=== PATIENT | male | born 1960 | race Caucasian/White ===

== ENCOUNTER 2017-07-14 15:19 | Emergency (ER) | payer MEDICAID, OTHER, SELFPAY ==
[2017-07-14] MEDS ORDERED: HYDROmorphone 2 MG/ML SDV IM ONE (15:50)
[2017-07-14] MEDS ORDERED: Iopamidol 755 MG/ML 150 ML Bottle IV ONE (16:59)
--- NOTE | 2017-07-14 17:18 | EDM.PDOC ---
ED HPI GENERAL MEDICAL PROBLEM - General Chief Complaint: Abdominal Pain Stated Complaint: POST SURGERY PAIN Time Seen by Provider: 07/14/17 15:33 Source of Information: Reports: Patient, Family History Limitations: Reports: No Limitations - History of Present Illness INITIAL COMMENTS - FREE TEXT/NARRATIVE: 56 y.o.w.m came to the ed due to pain in his r lower abdomen since he had an inguinal hernia surgery on May 24 2017. Pt was seen at several clinics and EDs and had multiple CTs of his abdomen. All the CTs were the same and did not change. No abscess, no infections were seen in any of the CTs. Pt denies any other acute medical issues. BP 155/93 puls 93 Onset: Unknown/Unsure Onset Date: 05/24/17 Onset Time: 20:00 Duration: Week(s): Location: Reports: Abdomen Right Lower Abdomen Pain Score (Numeric/FACES): 9 - Related Data Allergies Allergy/AdvReac Type Severity Reaction Status Date / Time gabapentin Allergy Difficulty Verified 07/14/17 15:31 Swallowing pregabalin [From Lyrica] Allergy Difficulty Verified 07/14/17 15:31 Swallowing Home Meds: Home Meds ALPRAZolam [ALPRAZolam ER] 0.5 mg PO BID 03/24/16 [History] ALPRAZolam [Alprazolam] 1 mg PO BEDTIME 03/25/16 [History] Levothyroxine 125 mcg PO DAILY 03/25/16 [History] Lisinopril 30 mg PO DAILY 11/27/16 [History] Past Medical History HEENT History: Reports: Otitis Media Cardiovascular History: Reports: Hypertension Other Cardiovascular History: stat Gastrointestinal History: Reports: GI Bleed Musculoskeletal History: Reports: Back Pain, Chronic, Neck Pain, Chronic, RA Psychiatric History: Reports: Anxiety, Panic Attack Endocrine/Metabolic History: Reports: Hypothyroidism Hematologic History: Reports: Anemia, Blood Transfusion(s), Iron Deficiency - Infectious Disease History Infectious Disease History: Reports: Chicken Pox - Past Surgical History HEENT Surgical History: Reports: Myringotomy w Tube(s), Tonsillectomy GI Surgical History: Reports: Colon, Colonoscopy, Hernia Repair/Other Musculoskeletal Surgical History: Reports: Carpal Tunnel Social & Family History - Family History Family Medical History: Noncontributory HEENT: Reports: Cataract Cardiac: Reports: [place] OBGYN: Reports: Musculoskeletal: Reports: Arthritis, RA Neurological: Reports: CVA Psychiatric: Reports: Anxiety Endocrine/Metabolic: Reports: Diabetes, type II Oncologic: Reports: Other (See Below) Other Oncologic Family History: testicular and rectal - Tobacco Use Smoking Status *Q: Current Every Day Smoker Years of Tobacco use: 43 Packs/Tins Daily: 1 Used Tobacco, but Quit: No Second Hand Smoke Exposure: No - Caffeine Use Caffeine Use: Reports: None - Recreational Drug Use Recreational Drug Use: No ED ROS GENERAL - Review of Systems Review Of Systems: See Below Constitutional: Reports: No Symptoms HEENT: Reports: No Symptoms Respiratory: Reports: No Symptoms Cardiovascular: Reports: No Symptoms Endocrine: Reports: No Symptoms GI/Abdominal: Reports: Abdominal Pain : Reports: Dysuria Musculoskeletal: Reports: No Symptoms Skin: Reports: No Symptoms Neurological: Reports: No Symptoms Psychiatric: Reports: No Symptoms Hematologic/Lymphatic: Reports: No Symptoms Immunologic: Reports: No Symptoms ED EXAM, GI/ABD - Physical Exam Exam: See Below Exam Limited By: No Limitations General Appearance: Alert, WD/WN, Mild Distress Eyes: Bilateral: Normal Appearance Ears: Normal External Exam Nose: Normal Inspection, Normal Mucosa Throat/Mouth: Normal Inspection Head: Atraumatic, Normocephalic Neck: Normal Inspection, Supple, Non-Tender Respiratory/Chest: No Respiratory Distress, Lungs Clear Cardiovascular: Normal Peripheral Pulses, Regular Rate, Rhythm, No Edema GI/Abdominal Exam: Normal Bowel Sounds, Tender (tender r lower abd. no redness, well healed surgical scar. no fluctuating mass) (Male) Exam: No Hernia Rectal (Males) Exam: Deferred Back Exam: Normal Inspection, Full Range of Motion Extremities: Normal Inspection, Normal Range of Motion, Non-Tender, No Pedal Edema Neurological: Alert, Oriented, CN II-XII Intact, Normal Cognition, Normal Gait Psychiatric: Normal Affect, Normal Mood Skin Exam: Warm, Dry, Intact, Normal Color, No Rash Lymphatic: No Adenopathy Course - Vital Signs Text/Narrative:: 56 y.o.w.m came to the ed due to pain in his r lower abdomen since he had an inguinal hernia surgery on May 24 2017. Pt was seen at several clinics and EDs and had multiple CTs of his abdomen. All the CTs were the same and did not change. No abscess, no infections were seen in any of the CTs. Pt denies any other acute medical issues. BP 155/93 puls 93 Imaging: US of scrotum: NAD. CT: Abd/Pelvis results are pending Impression: Seroma s/p Hernia surgery 05/24/2017. scrotal pain. Consultation: Dr. Mejia, Surgeon, [place]: Seroma s/p surgery will not resolve if there is on infection involved. He is recommending CT abd. with contrast. If neg, cont tylenol and carafate. Dr. Mejia is very concerned about the patients drug seeking behaviour. Tx: Initially Dilaudid, Ultram Impression: Improved Plan: D/C with instructions Last Recorded V/S: Last Vital Signs Temp 35.9 C 07/14/17 15:33 Pulse 69 07/14/17 19:20 Resp 14 07/14/17 19:20 BP 136/93 H 07/14/17 19:20 Pulse Ox 98 07/14/17 19:20 - Orders/Labs/Meds Orders: Active Orders 24 hr Category Date Time Status Abdomen Pelvis w Cont [CT] Stat Exams 07/14/17 17:14 Taken Scrotum and Contents [US] Stat Exams 07/14/17 16:51 Taken Labs: Laboratory Tests 07/14/17 07/14/17 07/14/17 Range/Units 15:51 17:07 17:07 WBC 8.4 (4.5-12.0) X10-3/uL RBC 4.86 (4.30-5.75) x10(6)uL Hgb 14.0 (11.5-15.5) g/dL Hct 41.6 (30.0-51.3) % MCV 85.5 (80-96) fL MCH 28.7 (27.7-33.6) pg MCHC 33.6 (32.2-35.4) g/dL RDW 15.7 H (11.5-15.5) % Plt Count 268 (125-369) X10(3)uL MPV 7.8 (7.4-10.4) fL Neut % (Auto) 65.0 (46-82) % Lymph % (Auto) 26.5 (13-37) % [place] % (Auto) 5.4 (4-12) % Eos % (Auto) 3 (1.0-5.0) % Baso % (Auto) 1 (0-2) % Neut # (Auto) 5.4 (1.6-8.3) # Lymph # (Auto) 2.2 (0.6-5.0) # [place] # (Auto) 0.5 (0.0-1.3) # Eos # (Auto) 0.2 (0.0-0.8) # Baso # (Auto) 0.1 (0.0-0.2) # Sodium 131 L D (135-145) mmol/L Potassium 4.0 (3.5-5.3) mmol/L Chloride 97 L D (100-110) mmol/L Carbon Dioxide 24 (23-29) mmol/L BUN 18 (5-20) mg/dL Creatinine 1.3 (0.6-1.3) mg/dL Est Cr Clr Drug Dosing 82.03 mL/min Estimated GFR (MDRD) 57 L (>60) BUN/Creatinine Ratio 13.8 (9-20) Glucose 105 (80-116) mg/dL Calcium 9.6 (8.6-10.2) mg/dL Urine Color Yellow (YELLOW) Urine Appearance Clear (CLEAR) Urine pH 6.0 (5.0-6.5) Ur Specific [place] 1.015 (1.010-1.025) Urine Protein Negative (NEGATIVE) mg/dL Urine Glucose (UA) Normal (NEGATIVE) mg/dL Urine Ketones Negative (NEGATIVE) mg/dL Urine Occult Blood Negative (NEGATIVE) Urine Nitrite Negative (NEGATIVE) Urine Bilirubin Negative (NEGATIVE) Urine Urobilinogen Normal (NEGATIVE) mg/dL Ur Leukocyte Esterase Negative (NEGATIVE) Urine RBC 0-5 (0) Urine WBC 0-5 (0) Ur Squamous Epith Cells Rare (NS,R,O) Urine Bacteria Occasional H (NS) Urine Mucus Occasional H (NS) Meds: Medications Discontinued Medications Generic Name Dose Route Start Last Admin Trade Name Freq PRN Reason Stop Dose Admin Hydromorphone HCl 1 mg 07/14/17 15:50 07/14/17 16:00 Dilaudid IM 07/14/17 15:51 1 mg ONETIME ONE Administration Iopamidol 150 ml 07/14/17 16:59 07/14/17 17:12 [id number] (76%) IV 07/14/17 17:00 136 ml ONETIME ONE Administration Departure - Departure Time of Disposition: 18:55 Disposition: Home, Self-Care 01 Condition: Good Clinical Impression: Seroma infection, postoperative - Discharge Information Referrals: PCP,None [Primary Care Provider] - Forms: ED Department Discharge Additional Instructions: Your Imaging study reports are not back yet. Please apply ice to the affected area, please continue your current meds, please f/u with the pain clinic, please come back if your symptoms get worse acutely. - My Orders Last 24 Hours: My Active Orders 07/14/17 16:51 Scrotum and Contents [US] Stat 07/14/17 17:14 Abdomen Pelvis w Cont [CT] Stat - Assessment/Plan Last 24 Hours: My Active Orders 07/14/17 16:51 Scrotum and Contents [US] Stat 07/14/17 17:14 Abdomen Pelvis w Cont [CT] Stat
[2017-07-14 19:21] VITALS: BP 136/93
[2017-07-14] MEDS ORDERED: traMADol 50 MG Tab PO ONE (19:28)
--- NOTE | 2017-07-17 16:11 | US ---
INDICATION: Right scrotum swelling. ULTRASOUND SCROTUM AND CONTENTS: Multiple ultrasonic images revealed the testicles to measure 4.6 x 2.2 x 2.9 cm on the right and 4.6 x 2 x 3.1 cm on the left. The testicles had a normal appearance in size, shape, and echotexture, with normal blood flow also seen. Epididymides were unremarkable bilaterally. Minimal bilateral hydroceles are noted of questionable significance and may be normal in this patient. Superiorly, in the scrotum bilaterally, there are vascular structures compatible with varicocele, appearing somewhat more prominent on the left than right. IMPRESSION: 1. Bilateral varicoceles, larger left than right. 2. Minimal hydroceles bilaterally, which may be a normal finding in this specific patient. 3. Scrotal ultrasound otherwise unremarkable with no focal mass lesion or abnormal testicular or epididymal blood flow. MATHEWD
== END 2017-07-14 19:19 | disposition home or self-care (01) ==
LOC: FB.ED 15:19
DX: K91.872 Postprocedural seroma of a digestive system organ or structure following a digestive system procedure (principal); I10 Essential (primary) hypertension; F41.9 Anxiety disorder, unspecified; E03.9 Hypothyroidism, unspecified; F17.210 Nicotine dependence, cigarettes, uncomplicated; Z88.8 Allergy status to other drugs, medicaments and biological substances
CPT/HCPCS: 36415; 74177; 76870; 80048; 81001; 85025; 96372; 99284; J1170; Q9967; 99283; A9270-GY

== ENCOUNTER 2017-11-13 14:59 | Emergency (ER) | payer OTHER, SELFPAY ==
[2017-11-13] MEDS ORDERED: Lactated Ringers 1,000 ML IV ONE (15:35)
[2017-11-13] MEDS ORDERED: HYDROmorphone 2 MG/ML SDV IVPUSH ONE (15:35)
[2017-11-13] MEDS ORDERED: Sodium Chloride 0.9% 10 ML Syringe FLUSH PRN (15:43)
--- NOTE | 2017-11-13 15:50 | EDM.PDOC ---
ED HPI GENERAL MEDICAL PROBLEM - General Chief Complaint: Abdominal Pain Stated Complaint: GROIN PAIN /STOMACH Time Seen by Provider: 11/13/17 15:35 Source of Information: Reports: Patient History Limitations: Reports: No Limitations - History of Present Illness INITIAL COMMENTS - FREE TEXT/NARRATIVE: 56 yo male presents with a 3 day hx of RLQ abdominal pain. No fever. Has had nausea at times. Pain worse with movement. Still has his appendix. Has R inguinal hernia repair in the past. Pain radiates to the R testicle. No dysuria or hematuria. No flank pain. Has not been seen for this recently. Has a surgeon in [place], but no family doctor. Also, mentions diffuse joint pains of recent onset. Onset: Gradual Onset Date: 11/10/17 Duration: Day(s): Location: Reports: Abdomen Quality: Reports: Ache Severity: Moderate Improves with: Reports: Rest Worsens with: Reports: Movement Context: Reports: Other (Hx of R inguinal hernia repair. ) Associated Symptoms: Reports: Nausea/Vomiting (mild nausea, no vomiting.). Denies: Fever/Chills Treatments [employer]: Reports: Other (see below) (none) Right Groin Pain Score (Numeric/FACES): 9 Generalized Pain Score (Numeric/FACES): 5 - Related Data Allergies Allergy/AdvReac Type Severity Reaction Status Date / Time gabapentin Allergy Difficulty Verified 07/14/17 15:31 Swallowing pregabalin [From Lyrica] Allergy Difficulty Verified 11/13/17 15:14 Swallowing Home Meds: Home Meds Levothyroxine 125 mcg PO DAILY 03/25/16 [History] Lisinopril 30 mg PO DAILY 11/27/16 [History] Hydrocodone/Acetaminophen [[place] 5-325] 1 - 2 tab PO Q4H PRN #20 tablet [Rx] Past Medical History HEENT History: Reports: Otitis Media Cardiovascular History: Reports: Hypertension Other Cardiovascular History: stat Gastrointestinal History: Reports: GI Bleed Musculoskeletal History: Reports: Back Pain, Chronic, Neck Pain, Chronic, RA Psychiatric History: Reports: Anxiety, Panic Attack Endocrine/Metabolic History: Reports: Hypothyroidism Hematologic History: Reports: Anemia, Blood Transfusion(s), Iron Deficiency - Infectious Disease History Infectious Disease History: Reports: Mumps - Past Surgical History HEENT Surgical History: Reports: Myringotomy w Tube(s), Tonsillectomy GI Surgical History: Reports: Colon, Colonoscopy, Hernia Repair/Other Musculoskeletal Surgical History: Reports: Carpal Tunnel Social & Family History - Family History Family Medical History: Noncontributory HEENT: Reports: Cataract Cardiac: Reports: [place] OBGYN: Reports: Musculoskeletal: Reports: Arthritis, RA Neurological: Reports: CVA Psychiatric: Reports: Anxiety Endocrine/Metabolic: Reports: Diabetes, type II Oncologic: Reports: Other (See Below) Other Oncologic Family History: testicular and rectal - Tobacco Use Smoking Status *Q: Current Every Day Smoker Years of Tobacco use: 40 Packs/Tins Daily: 1 Used Tobacco, but Quit: No Second Hand Smoke Exposure: No - Caffeine Use Caffeine Use: Reports: None - Recreational Drug Use Recreational Drug Use: No ED ROS GENERAL - Review of Systems Review Of Systems: See Below Constitutional: Reports: No Symptoms HEENT: Reports: No Symptoms Respiratory: Reports: No Symptoms Cardiovascular: Reports: No Symptoms Endocrine: Reports: No Symptoms GI/Abdominal: Reports: Abdominal Pain (RLQ) : Reports: No Symptoms Musculoskeletal: Reports: Other (Diffuse joint pains.) Skin: Reports: No Symptoms Neurological: Reports: No Symptoms ED EXAM, GI/ABD - Physical Exam Exam: See Below Exam Limited By: No Limitations General Appearance: Alert, WD/WN, No Apparent Distress Eyes: Bilateral: Normal Appearance Ears: Normal External Exam, Normal Canal, Hearing Grossly Normal Nose: Normal Inspection, Normal Mucosa, No Blood Throat/Mouth: Normal Inspection, Normal Lips, Normal Oropharynx, Normal Voice, No Airway Compromise Head: Atraumatic, Normocephalic Neck: Normal Inspection, Supple Respiratory/Chest: No Respiratory Distress, Lungs Clear, Normal Breath Sounds, No Accessory Muscle Use Cardiovascular: Regular Rate, Rhythm GI/Abdominal Exam: Normal Bowel Sounds, Soft, Tender ([place]), Other ( no hernia palpable. ) (Male) Exam: Testicular Tenderness (R) (but not swelling. Not retracted. ) Back Exam: Normal Inspection. No: CVA Tenderness (R), CVA Tenderness (L) Extremities: Normal Inspection, Normal Range of Motion, Non-Tender, No Pedal Edema Neurological: Alert, Oriented, CN II-XII Intact, Normal Cognition, No Motor/ Sensory Deficits Psychiatric: Normal Affect, Normal Mood Skin Exam: Warm, Dry, Intact, Normal Color, No Rash Lymphatic: No Adenopathy Course - Vital Signs Text/Narrative:: LR 1000 ml IV, Dilaudid 1 mg IV-feeling a lot better after these tx's. Last Recorded V/S: Last Vital Signs Temp 36.2 C 11/13/17 15:22 Pulse 91 11/13/17 15:22 Resp 16 11/13/17 15:22 BP 160/86 H 11/13/17 15:22 Pulse Ox 99 11/13/17 15:22 - Orders/Labs/Meds Orders: Active Orders 24 hr Category Date Time Status Sodium Chloride 0.9% [Saline Flush] Med 11/13/17 15:43 Active 10 ml FLUSH ASDIRECTED PRN Saline Lock Insert [OM.PC] Routine Oth 11/13/17 15:43 Ordered Medication Orders Sodium Chloride (Saline Flush) 10 ml FLUSH ASDIRECTED PRN PRN Reason: Keep Vein Open Last Admin: 11/13/17 16:05 Dose: 10 ml Labs: Laboratory Tests 11/13/17 11/13/17 11/13/17 Range/Units 15:14 15:50 15:50 WBC 9.5 (4.5-12.0) X10-3/uL RBC 5.41 (4.30-5.75) x10(6)uL Hgb 15.5 (11.5-15.5) g/dL Hct 45.8 (30.0-51.3) % MCV 84.6 (80-96) fL MCH 28.7 (27.7-33.6) pg MCHC 34.0 (32.2-35.4) g/dL RDW 14.9 (11.5-15.5) % Plt Count 260 (125-369) X10(3)uL Sodium 139 (135-145) mmol/L Potassium 4.1 (3.5-5.3) mmol/L Chloride 100 (100-110) mmol/L Carbon Dioxide 29 (21-32) mmol/L BUN 19 H (7-18) mg/dL Creatinine 1.1 (0.70-1.30) mg/dL Est Cr Clr Drug Dosing 96.94 mL/min Estimated GFR (MDRD) > 60 (>60) BUN/Creatinine Ratio 17.3 (9-20) Glucose 105 (80-116) mg/dL Calcium 9.9 (8.6-10.2) mg/dL C-Reactive Protein (0.5-0.9) mg/dL Urine Color Yellow (YELLOW) Urine Appearance Clear (CLEAR) Urine pH 7.0 H (5.0-6.5) Ur Specific [place] 1.015 (1.010-1.025) Urine Protein Negative (NEGATIVE) mg/dL Urine Glucose (UA) Normal (NEGATIVE) mg/dL Urine Ketones Negative (NEGATIVE) mg/dL Urine Occult Blood Negative (NEGATIVE) Urine Nitrite Negative (NEGATIVE) Urine Bilirubin Negative (NEGATIVE) Urine Urobilinogen Normal (NEGATIVE) mg/dL Ur Leukocyte Esterase Negative (NEGATIVE) Urine RBC 0-5 (0) Urine WBC 0-5 (0) Ur Squamous Epith Cells Occasional (NS,R,O) Urine Bacteria Rare H (NS) 11/13/17 Range/Units 15:50 WBC (4.5-12.0) X10-3/uL RBC (4.30-5.75) x10(6)uL Hgb (11.5-15.5) g/dL Hct (30.0-51.3) % MCV (80-96) fL MCH (27.7-33.6) pg MCHC (32.2-35.4) g/dL RDW (11.5-15.5) % Plt Count (125-369) X10(3)uL Sodium (135-145) mmol/L Potassium (3.5-5.3) mmol/L Chloride (100-110) mmol/L Carbon Dioxide (21-32) mmol/L BUN (7-18) mg/dL Creatinine (0.70-1.30) mg/dL Est Cr Clr Drug Dosing mL/min Estimated GFR (MDRD) (>60) BUN/Creatinine Ratio (9-20) Glucose (80-116) mg/dL Calcium (8.6-10.2) mg/dL C-Reactive Protein < 0.2 L (0.5-0.9) mg/dL Urine Color (YELLOW) Urine Appearance (CLEAR) Urine pH (5.0-6.5) Ur Specific [place] (1.010-1.025) Urine Protein (NEGATIVE) mg/dL Urine Glucose (UA) (NEGATIVE) mg/dL Urine Ketones (NEGATIVE) mg/dL Urine Occult Blood (NEGATIVE) Urine Nitrite (NEGATIVE) Urine Bilirubin (NEGATIVE) Urine Urobilinogen (NEGATIVE) mg/dL Ur Leukocyte Esterase (NEGATIVE) Urine RBC (0) Urine WBC (0) Ur Squamous Epith Cells (NS,R,O) Urine Bacteria (NS) Meds: Medications Generic Name Dose Route Start Last Admin Trade Name Fernandez PRN Reason Stop Dose Admin Sodium Chloride 10 ml 11/13/17 15:43 11/13/17 16:05 Saline Flush FLUSH 10 ml ASDIRECTED PRN Administration Keep Vein Open Discontinued Medications Generic Name Dose Route Start Last Admin Trade Name [place] PRN Reason Stop Dose Admin Hydromorphone HCl 1 mg 11/13/17 15:35 11/13/17 16:07 Dilaudid IVPUSH 11/13/17 15:36 1 mg ONETIME ONE Administration Lactated Ringer's 1,000 mls @ 1,000 mls/hr 11/13/17 15:35 11/13/17 16:05 Ringers, Lactated IV 11/13/17 16:34 1,000 mls/hr BOLUS ONE Administration Departure - Departure Time of Disposition: 17:00 Disposition: Home, Self-Care 01 Condition: Fair Clinical Impression: Abdominal pain Qualifiers: Abdominal location: right lower quadrant Qualified Code(s): R10.31 - Right lower quadrant pain - Discharge Information Prescriptions: Hydrocodone/Acetaminophen [[place] 5-325] 1 - 2 tab PO Q4H PRN #20 tablet PRN Reason: Pain Referrals: PCP,None [Primary Care Provider] - Forms: ED Department Discharge - My Orders Last 24 Hours: My Active Orders 11/13/17 15:43 Sodium Chloride 0.9% [Saline Flush] 10 ml FLUSH ASDIRECTED PRN Saline Lock Insert [OM.PC] Routine - Assessment/Plan Last 24 Hours: My Active Orders 11/13/17 15:43 Sodium Chloride 0.9% [Saline Flush] 10 ml FLUSH ASDIRECTED PRN Saline Lock Insert [OM.PC] Routine
[2017-11-13 16:47] VITALS: BP 139/89
== END 2017-11-13 17:09 | disposition home or self-care (01) ==
LOC: FB.ED 14:59
DX: R10.31 Right lower quadrant pain (principal); I10 Essential (primary) hypertension; E03.9 Hypothyroidism, unspecified; F17.210 Nicotine dependence, cigarettes, uncomplicated; Z88.8 Allergy status to other drugs, medicaments and biological substances; Z79.899 Other long term (current) drug therapy
CPT/HCPCS: 36415; 80048; 81001; 85027; 86140; 96361; 96374; 99284; J1170; J7050; J7120

== ENCOUNTER 2017-11-19 16:59 | Emergency (ER) | payer OTHER ==
[2017-11-19] MEDS ORDERED: Ketorolac 60 MG/2 ML SDV IM ONE (17:13)
--- NOTE | 2017-11-19 17:17 | EDM.PDOC ---
ED HPI GENERAL MEDICAL PROBLEM - General Chief Complaint: Abdominal Pain Stated Complaint: ABDOMINAL PAIN POST SURGERY Time Seen by Provider: 11/19/17 17:06 Source of Information: Reports: Patient, Family History Limitations: Reports: No Limitations - History of Present Illness INITIAL COMMENTS - FREE TEXT/NARRATIVE: 56 y.o.w. m s/p hernia hernia, had multiple w/ups for same, all neg. Spoke to the surgeon at one time, did not recommended any opioids, Pt was in [facility] ed one week ago and received 20 tabls of norco. No N/V/D BP 181/91 Pulse 90 Temp 36.7 RR 18 Pulse ox 97% on RA Onset Date: 10/23/17 Onset Time: 08:00 Duration: Chronic Location: Reports: Generalized Quality: Reports: Ache Severity: Moderate Improves with: Reports: Medication (narcotics) Worsens with: Reports: None Context: Reports: Other (had hernia repair in the distant past) Associated Symptoms: Reports: No Other Symptoms Right Abdominal Pain Score (Numeric/FACES): 9 - Related Data Allergies Allergy/AdvReac Type Severity Reaction Status Date / Time gabapentin Allergy Difficulty Verified 11/19/17 17:06 Swallowing pregabalin [From Lyrica] Allergy Difficulty Verified 11/19/17 17:06 Swallowing Home Meds: Home Meds Levothyroxine 125 mcg PO DAILY 03/25/16 [History] Lisinopril 30 mg PO DAILY 11/27/16 [History] Hydrocodone/Acetaminophen [[place] 5-325] 1 - 2 tab PO Q4H PRN #20 tablet [Rx] Past Medical History HEENT History: Reports: Otitis Media Cardiovascular History: Reports: Hypertension, Other (See Below) Other Cardiovascular History: stat Gastrointestinal History: Reports: GI Bleed Musculoskeletal History: Reports: Back Pain, Chronic, Neck Pain, Chronic, RA Psychiatric History: Reports: Anxiety, Panic Attack Endocrine/Metabolic History: Reports: Hypothyroidism Hematologic History: Reports: Anemia, Blood Transfusion(s), Iron Deficiency - Infectious Disease History Infectious Disease History: Reports: Mumps - Past Surgical History HEENT Surgical History: Reports: Myringotomy w Tube(s), Tonsillectomy GI Surgical History: Reports: Colon, Colonoscopy, Hernia Repair/Other Musculoskeletal Surgical History: Reports: Carpal Tunnel Social & Family History - Family History Family Medical History: Noncontributory HEENT: Reports: Cataract Cardiac: Reports: [place] OBGYN: Reports: Musculoskeletal: Reports: Arthritis, RA Neurological: Reports: CVA Psychiatric: Reports: Anxiety Endocrine/Metabolic: Reports: Diabetes, type II Oncologic: Reports: Other (See Below) Other Oncologic Family History: testicular and rectal - Tobacco Use Smoking Status *Q: Current Every Day Smoker Years of Tobacco use: 40 Packs/Tins Daily: 1 Used Tobacco, but Quit: No Second Hand Smoke Exposure: No - Caffeine Use Caffeine Use: Reports: None - Recreational Drug Use Recreational Drug Use: No ED ROS GENERAL - Review of Systems Review Of Systems: See Below Constitutional: Reports: No Symptoms HEENT: Reports: No Symptoms Respiratory: Reports: No Symptoms Cardiovascular: Reports: No Symptoms Endocrine: Reports: No Symptoms GI/Abdominal: Reports: Abdominal Pain (chronic) : Reports: No Symptoms Musculoskeletal: Reports: No Symptoms Skin: Reports: No Symptoms Neurological: Reports: No Symptoms Psychiatric: Reports: No Symptoms Hematologic/Lymphatic: Reports: No Symptoms Immunologic: Reports: No Symptoms ED EXAM, GI/ABD - Physical Exam Exam: See Below Exam Limited By: No Limitations General Appearance: Alert, WD/WN, No Apparent Distress Eyes: Bilateral: Normal Appearance Ears: Normal External Exam Nose: Normal Inspection Throat/Mouth: Normal Lips Head: Atraumatic, Normocephalic Neck: Normal Inspection, Supple, Non-Tender Respiratory/Chest: No Respiratory Distress Cardiovascular: Normal Peripheral Pulses, Regular Rate, Rhythm GI/Abdominal Exam: Normal Bowel Sounds, Other (Male) Exam: Deferred Rectal (Males) Exam: Deferred Back Exam: Normal Inspection, Full Range of Motion Extremities: Normal Inspection, Normal Range of Motion, Non-Tender Neurological: Alert, Oriented, CN II-XII Intact, Normal Cognition, Normal Gait, No Motor/Sensory Deficits Psychiatric: Normal Affect, Normal Mood Skin Exam: Warm, Dry Lymphatic: No Adenopathy Course - Vital Signs Text/Narrative:: 56 y.o.w. m s/p hernia hernia, had multiple w/ups for same, all neg. Spoke to the surgeon at one time, did not recommended any opioids, Pt was in [facility] ed one week ago and received 20 tabls of norco. No N/V/D BP 181/91 Pulse 90 Temp 36.7 RR 18 Pulse ox 97% on RA PE: WNWD W M NAD Labs: CBC, BMP amnd UA were nl Impression: Drug seeking behaviour, last visit on 11/13/2017 with complete W/U Tx: Toradol initially Reexam: Improved Plan: D/C with instructions Last Recorded V/S: Last Vital Signs Temp 36.3 C 11/19/17 17:06 Pulse 75 11/19/17 18:18 Resp 18 11/19/17 17:06 BP 157/92 H 11/19/17 18:18 Pulse Ox 97 11/19/17 17:06 - Orders/Labs/Meds Labs: Laboratory Tests 11/19/17 11/19/17 11/19/17 Range/Units 17:26 17:30 17:30 WBC 10.1 (4.5-12.0) X10-3/uL RBC 5.35 (4.30-5.75) x10(6)uL Hgb 15.4 (11.5-15.5) g/dL Hct 45.1 (30.0-51.3) % MCV 84.4 (80-96) fL MCH 28.7 (27.7-33.6) pg MCHC 34.0 (32.2-35.4) g/dL RDW 14.7 (11.5-15.5) % Plt Count 268 (125-369) X10(3)uL MPV 8.0 (7.4-10.4) fL Neut % (Auto) 73.6 (46-82) % Lymph % (Auto) 20.2 (13-37) % [place] % (Auto) 4.4 (4-12) % Eos % (Auto) 2 (1.0-5.0) % Baso % (Auto) 0 (0-2) % Neut # (Auto) 7.5 (1.6-8.3) # Lymph # (Auto) 2.0 (0.6-5.0) # [place] # (Auto) 0.4 (0.0-1.3) # Eos # (Auto) 0.2 (0.0-0.8) # Baso # (Auto) 0.0 (0.0-0.2) # Sodium 139 (135-145) mmol/L Potassium 4.1 (3.5-5.3) mmol/L Chloride 101 (100-110) mmol/L Carbon Dioxide 32 (21-32) mmol/L BUN 24 H (7-18) mg/dL Creatinine 1.2 (0.70-1.30) mg/dL Est Cr Clr Drug Dosing 88.86 mL/min Estimated GFR (MDRD) > 60 (>60) BUN/Creatinine Ratio 20.0 (9-20) Glucose 96 (80-116) mg/dL Calcium 9.9 (8.6-10.2) mg/dL Urine Color Yellow (YELLOW) Urine Appearance Clear (CLEAR) Urine pH 6.0 (5.0-6.5) Ur Specific [place] 1.015 (1.010-1.025) Urine Protein Negative (NEGATIVE) mg/dL Urine Glucose (UA) Normal (NEGATIVE) mg/dL Urine Ketones Negative (NEGATIVE) mg/dL Urine Occult Blood Negative (NEGATIVE) Urine Nitrite Negative (NEGATIVE) Urine Bilirubin Negative (NEGATIVE) Urine Urobilinogen Normal (NEGATIVE) mg/dL Ur Leukocyte Esterase Negative (NEGATIVE) Urine RBC 0-5 (0) Urine WBC 0-5 (0) Ur Squamous Epith Cells Occasional (NS,R,O) Urine Bacteria Not seen (NS) Meds: Medications Discontinued Medications Generic Name Dose Route Start Last Admin Trade Name Freq PRN Reason Stop Dose Admin Ketorolac Tromethamine 60 mg 11/19/17 17:13 11/19/17 17:16 Toradol IM 11/19/17 17:14 60 mg ONETIME ONE Administration Departure - Departure Time of Disposition: 18:12 Disposition: Home, Self-Care 01 Condition: Good Clinical Impression: Chronic pain Qualifiers: Chronic pain type: chronic pain syndrome Qualified Code(s): G89.4 - Chronic pain syndrome - Discharge Information Referrals: PCP,None [Primary Care Provider] - Forms: ED Department Discharge Additional Instructions: Please take motrin/tylenol for pain, please apply ice to the affected area, please f/u with your PMD, come back to the ED if acutely worse.
[2017-11-19 18:22] VITALS: BP 157/92
== END 2017-11-19 18:18 | disposition home or self-care (01) ==
LOC: FB.ED 16:59
DX: G89.4 Chronic pain syndrome (principal); E03.9 Hypothyroidism, unspecified; I10 Essential (primary) hypertension; F17.210 Nicotine dependence, cigarettes, uncomplicated; Z76.5 Malingerer [conscious simulation]; Z88.8 Allergy status to other drugs, medicaments and biological substances; Z79.899 Other long term (current) drug therapy; Z98.890 Other specified postprocedural states
CPT/HCPCS: 36415; 80048; 81001; 85025; 96372; 99284; J1885

== ENCOUNTER 2019-01-27 00:20 | Emergency (ER) | payer SELFPAY ==
[2019-01-27] MEDS ORDERED: ALPRAZolam 0.25 MG Tab PO ONE (00:54)
--- NOTE | 2019-01-27 00:54 | EDM.PDOC ---
ED HPI GENERAL MEDICAL PROBLEM - General Chief Complaint: General Stated Complaint: ANXIETY Time Seen by Provider: 01/27/19 00:20 Source of Information: Reports: Patient, Family History Limitations: Reports: No Limitations - History of Present Illness INITIAL COMMENTS - FREE TEXT/NARRATIVE: 58 y.o w m came to the ed because he\is mom a few min ago and he is very sad and anxious at the same time requesting Xanax to calm him down. No N/V/ D no Dizziness, no SOB, no CP no other acute med issues. BP 152/98 RR 18 Pulse ox 100% on RA Pulse 98 Temp 36.7 Onset Date: 01/27/19 Onset Time: 00:00 Duration: Minutes: Location: Reports: Generalized Quality: Reports: Other (anxious) Severity: Moderate Improves with: Reports: None Worsens with: Reports: None Context: Reports: Other (Pt's mom a few min ago) Associated Symptoms: Reports: No Other Symptoms Generalized Pain Score (Numeric/FACES): 5 - Related Data Allergies Allergy/AdvReac Type Severity Reaction Status Date / Time gabapentin Allergy Difficulty Verified 01/27/19 00:34 Swallowing pregabalin [From Lyrica] Allergy Difficulty Verified 01/27/19 00:34 Swallowing Home Meds: Home Meds Levothyroxine 125 mcg PO DAILY 03/25/16 [History] Lisinopril 30 mg PO DAILY 11/27/16 [History] ALPRAZolam [Xanax] 0.5 mg PO BEDTIME PRN #1 tablet 01/27/19 [Rx] Past Medical History HEENT History: Reports: Otitis Media Cardiovascular History: Reports: Hypertension, Other (See Below) Other Cardiovascular History: stat Gastrointestinal History: Reports: GI Bleed Musculoskeletal History: Reports: Back Pain, Chronic, Neck Pain, Chronic, RA Psychiatric History: Reports: Anxiety, Panic Attack Endocrine/Metabolic History: Reports: Hypothyroidism Hematologic History: Reports: Anemia, Blood Transfusion(s), Iron Deficiency - Infectious Disease History Infectious Disease History: Reports: Mumps - Past Surgical History HEENT Surgical History: Reports: Myringotomy w Tube(s), Tonsillectomy GI Surgical History: Reports: Colon, Colonoscopy, Hernia Repair/Other Musculoskeletal Surgical History: Reports: Carpal Tunnel Social & Family History - Family History Family Medical History: Noncontributory HEENT: Reports: Cataract Cardiac: Reports: [place] OBGYN: Reports: Musculoskeletal: Reports: Arthritis, RA Neurological: Reports: CVA Psychiatric: Reports: Anxiety Endocrine/Metabolic: Reports: Diabetes, type II Oncologic: Reports: Other (See Below) Other Oncologic Family History: testicular and rectal - Caffeine Use Caffeine Use: Reports: None ED ROS GENERAL - Review of Systems Review Of Systems: See Below Constitutional: Reports: No Symptoms HEENT: Reports: No Symptoms Respiratory: Reports: No Symptoms Cardiovascular: Reports: No Symptoms Endocrine: Reports: No Symptoms GI/Abdominal: Reports: No Symptoms : Reports: No Symptoms Musculoskeletal: Reports: No Symptoms Skin: Reports: No Symptoms Neurological: Reports: No Symptoms Psychiatric: Reports: Anxiety Hematologic/Lymphatic: Reports: No Symptoms Immunologic: Reports: No Symptoms ED EXAM, GENERAL - Physical Exam Exam: See Below Exam Limited By: No Limitations General Appearance: Alert, WD/WN, Mild Distress Eye Exam: Bilateral Eye: Normal Inspection Ears: Normal External Exam Ear Exam: Bilateral Ear: Auricle Normal Nose: Normal Inspection, Normal Mucosa Throat/Mouth: Normal Inspection Head: Atraumatic, Normocephalic Neck: Normal Inspection, Supple, Non-Tender Respiratory/Chest: No Respiratory Distress, Lungs Clear, Normal Breath Sounds Cardiovascular: Normal Peripheral Pulses, Regular Rate, Rhythm Peripheral Pulses: 1+: Brachial (R) GI/Abdominal: Normal Bowel Sounds (Male) Exam: Deferred Rectal (Males) Exam: Deferred Back Exam: Normal Inspection Extremities: Normal Inspection, Normal Range of Motion Neurological: Alert, Oriented, CN II-XII Intact, Normal Cognition, Normal Gait Psychiatric: Anxious Skin Exam: Warm, Dry, Intact, Normal Color, No Rash Lymphatic: No Adenopathy Course - Vital Signs Text/Narrative:: 58 y.o w m came to the ed because he is mom a few min ago and he is very sad and anxious at the same time requesting Xanax to calm him down. No N/V/ D no Dizziness, no SOB, no CP no other acute med issues. BP 152/98 RR 18 Pulse ox 100% on RA Pulse 98 Temp 36.7 PE: WNWD W M anxious and grieving for his mom who about one hour ago. Labs/Imaging: Not indicated Impression: Anxiety, mom an hour ago. Tx: Xanax 0.5 mg Reexam: Improved Plan: D/C with instructions Last Recorded V/S: Last Vital Signs Temp 36.5 C 01/27/19 00:20 Pulse 98 01/27/19 00:20 Resp 18 01/27/19 00:20 BP 142/98 H 01/27/19 00:20 Pulse Ox 100 01/27/19 00:20 - Orders/Labs/Meds Meds: Medications Discontinued Medications Generic Name Dose Route Start Last Admin Trade Name Freq PRN Reason Stop Dose Admin Alprazolam 0.5 mg 01/27/19 00:54 01/27/19 01:09 Xanax PO 01/27/19 00:55 0.5 mg ONETIME ONE Administration Departure - Departure Time of Disposition: 00:51 Disposition: Home, Self-Care 01 Condition: Good Clinical Impression: Anxiety, Anxiety and depression, Grieving - Discharge Information Prescriptions: ALPRAZolam [Xanax] 0.5 mg PO BEDTIME PRN #1 tablet PRN Reason: Anxiety Referrals: Jarod Granger PA-C [Primary Care Provider] - Forms: ED Department Discharge Additional Instructions: Please f/u with your PMD this Monday, please come back if your symptoms get worse acutely
[2019-01-27 03:09] VITALS: BP 142/98
== END 2019-01-27 01:15 | disposition home or self-care (01) ==
LOC: FB.ED 00:20
DX: F41.9 Anxiety disorder, unspecified (principal); F32.9 Major depressive disorder, single episode, unspecified; E03.9 Hypothyroidism, unspecified; Z63.4 Disappearance and death of family member; Z88.8 Allergy status to other drugs, medicaments and biological substances; Z79.899 Other long term (current) drug therapy
CPT/HCPCS: 99283; A9270

== ENCOUNTER 2022-05-05 18:37 | Emergency (ER) | payer MEDICAID, OTHER ==
[2022-05-05] MEDS ORDERED: EPINEPHrine 1 MG/1 ML Amp IVPUSH ONE (18:40)
[2022-05-05] MEDS ORDERED: EPINEPHrine 1:10,000 1 MG/10 ML Syringe IVPUSH ONE ×3 (18:40→18:48)
[2022-05-05] MEDS ORDERED: Naloxone 0.4 MG/ML SDV IVPUSH PRN (18:43)
[2022-05-05 19:11] LABS: ESTIMATED GFR 49 mL/min (>60)
[2022-05-16 20:09] LABS: CANNABIDIOL Negative (.); CANNABINOL Negative (.); HYDROXY-THC Negative (.); TETRAHYDROCANNABINOL(THC) Negative (.)
[2022-05-16 23:09] LABS: 6-ACETYLMORPHINE Negative (.); CODEINE Negative (.); DIHYDROCODEINE Negative (.); HYDROCODONE Negative (.); HYDROMORPHONE Negative (.); MORPHINE Negative (.); OPIATE CONFIRMATION Negative (.)
[2022-05-17 00:09] LABS: 7-AMINOCLONAZEPAM Negative (.); BENZODIAZEPINES CONFIRM Positive (.); CHLORDIAZEPOXIDE Negative (.); CLONAZEPAM Negative (.); DESALKYLFLURAZEPAM Negative (.); DESMETHYLCHLORDIAZEPOXIDE Negative (.); DESMETHYLDIAZEPAM Negative (.); DIAZEPAM Negative (.); FLURAZEPAM Negative (.); LORAZEPAM Negative (.); MIDAZOLAM Negative (.); OXAZEPAM Negative (.); TEMAZEPAM Negative (.); TRIAZOLAM Negative (.)
[2022-05-19 15:11] LABS: AMPHETAMINE 90 ng/mL (.); AMPHETAMINES CONFIRMATION Positive (.); MDA Negative (.); MDEA Negative (.); MDMA Negative (.); METHAMPHETAMINE 279 ng/mL (.)
== END 2022-05-05 18:49 | disposition expired ==
LOC: FB.ED 18:37
DX: I46.9 Cardiac arrest, cause unspecified (principal); R40.4 Transient alteration of awareness; I10 Essential (primary) hypertension; Z88.5 Allergy status to narcotic agent; Z88.8 Allergy status to other drugs, medicaments and biological substances; Z79.899 Other long term (current) drug therapy
CPT/HCPCS: 31500; 36415; 36680; 80053; 80307; 82947; 84443; 84484; 85025; 92950; 96374; 96375; 99285; J0171; J2310